=== PATIENT | female | born 1960 | race African-American/Black ===

== ENCOUNTER 2019-05-01 14:25 | Emergency (ER) | payer OTHER ==
[~2019-05-01] VITALS: Ht 167.6 cm; Wt 99.8 kg
[~2019-05-01 14:25] MED LIST: BACTRIM 400-801 EACH PO; FLEXERIL PO; FLONASE 0.05%50 MCG NASAL; KEFLEX500 MG PO; NOHOMEMEDICATIONS; NORCO 5-325 TA1 EACH PO; PROVENTIL HFA6.7 G1 INH; ROBAFEN AC SYR120 ML PO; ZPAK PO
[2019-05-01] MEDS ORDERED: NORCO 5-325 TA1 EAC1 PO (15:04)
[2019-05-01] MEDS ORDERED: PENICILLIN V P500 MG PO (15:04)
[2019-05-01] MEDS ORDERED: NAPROSYN500 MG PO (15:04)
[2019-05-01 16:05] VITALS: BP 126/71
== END 2019-05-01 15:50 | disposition home or self-care (01) ==
LOC: ER 14:25
DX: K00.7 Teething syndrome (principal); K13.79 Other lesions of oral mucosa; F17.210 Nicotine dependence, cigarettes, uncomplicated; M19.90 Unspecified osteoarthritis, unspecified site; Z88.1 Allergy status to other antibiotic agents; Z88.6 Allergy status to analgesic agent

== ENCOUNTER 2019-06-09 14:22 | Emergency (ER) | payer OTHER ==
[~2019-06-09] VITALS: Ht 167.6 cm; Wt 95.3 kg
[~2019-06-09 14:22] MED LIST changes: +NAPROSYN500 MG PO; +NORCO 5-325 TA1 EAC1 PO; +PENICILLIN V P500 MG PO
[2019-06-09] MEDS ORDERED: NORCO 5-325 TA1 EAC1 PO (16:07)
[2019-06-09] MEDS ORDERED: MOBIC15 MG PO (16:07)
[2019-06-09] MEDS ORDERED: PENICILLIN VK500 M1 PO (16:07)
[2019-06-09 16:10] VITALS: BP 118/72
== END 2019-06-09 16:10 | disposition home or self-care (01) ==
LOC: ER 14:22
DX: K04.7 Periapical abscess without sinus (principal); M19.90 Unspecified osteoarthritis, unspecified site; F17.210 Nicotine dependence, cigarettes, uncomplicated; Z88.1 Allergy status to other antibiotic agents; Z88.6 Allergy status to analgesic agent

== ENCOUNTER 2019-06-29 09:31 | Emergency (ER) | payer OTHER ==
[~2019-06-29] VITALS: Ht 167.6 cm; Wt 104.3 kg
[~2019-06-29 09:31] MED LIST changes: +MOBIC15 MG PO; +PENICILLIN VK500 M1 PO
[2019-06-29] MEDS ORDERED: PENICILLIN VK500 M1 PO (10:48)
[2019-06-29] MEDS ORDERED: ACETAMINOPHEN-1 EAC1 PO (10:48)
[2019-06-29] MEDS ORDERED: NAPROSYN500 MG PO (10:48)
[2019-06-29 11:09] VITALS: BP 140/80
== END 2019-06-29 11:10 | disposition home or self-care (01) ==
LOC: ER 09:31
DX: K08.89 Other specified disorders of teeth and supporting structures (principal); M19.90 Unspecified osteoarthritis, unspecified site; F17.210 Nicotine dependence, cigarettes, uncomplicated; Z88.6 Allergy status to analgesic agent

== ENCOUNTER 2019-12-04 09:40 | Emergency (ER) | payer OTHER ==
[~2019-12-04] VITALS: Ht 167.6 cm; Wt 104.3 kg
[~2019-12-04 09:40] MED LIST changes: +ACETAMINOPHEN-1 EAC1 PO
[2019-12-04] MEDS ORDERED: NORFLEX100 MG PO (13:05)
[2019-12-04] MEDS ORDERED: NAPROSYN500 MG PO (13:05)
[2019-12-04 13:29] VITALS: BP 141/73
== END 2019-12-04 13:30 | disposition home or self-care (01) ==
LOC: ER 09:40
DX: S39.012A Strain of muscle, fascia and tendon of lower back, initial encounter (principal); S70.12XA Contusion of left thigh, initial encounter; M19.90 Unspecified osteoarthritis, unspecified site; F17.210 Nicotine dependence, cigarettes, uncomplicated; Z88.6 Allergy status to analgesic agent; Z88.8 Allergy status to other drugs, medicaments and biological substances; W18.39XA Other fall on same level, initial encounter; Y93.89 Activity, other specified; Y92.89 Other specified places as the place of occurrence of the external cause; Y99.8 Other external cause status

== ENCOUNTER 2020-04-24 12:39 | Emergency (ER) | payer OTHER ==
[~2020-04-24] VITALS: Ht 167.6 cm; Wt 88.5 kg
[~2020-04-24 12:39] MED LIST changes: +NORFLEX100 MG PO
[2020-04-24 12:44] VITALS: BP 103/70
[2020-04-24] MEDS ORDERED: MELOXICAM7.5 MG PO (13:10)
[2020-04-24] MEDS ORDERED: AMOXICILLIN 50500 MG PO (13:10)
[2020-04-24] MEDS ORDERED: PERIDEX 0.12%473 M1 PO (13:10)
== END 2020-04-24 13:39 | disposition home or self-care (01) ==
LOC: ER 12:39
DX: K02.9 Dental caries, unspecified (principal); K05.10 Chronic gingivitis, plaque induced; M19.90 Unspecified osteoarthritis, unspecified site; Z79.899 Other long term (current) drug therapy; Z88.8 Allergy status to other drugs, medicaments and biological substances